=== PATIENT | female | born 1940 | race African-American/Black ===

== ENCOUNTER 2019-01-03 11:15 | Emergency (ER) | payer MEDICAID, MEDICARE ==
[~2019-01-03] VITALS: Ht 167.6 cm; Wt 82.0 kg
[2019-01-03 11:19] VITALS: BP 162/79
== END 2019-01-03 13:07 | disposition left against medical advice (07) ==
LOC: ER 11:15
DX: R04.0 Epistaxis (principal); Z53.21 Procedure and treatment not carried out due to patient leaving prior to being seen by health care provider

== ENCOUNTER 2019-01-03 16:49 | Emergency (ER) | payer MEDICARE ==
[~2019-01-03] VITALS: Ht 162.6 cm; Wt 72.0 kg
[2019-01-03 20:07] VITALS: BP 139/81
== END 2019-01-03 20:08 | disposition home or self-care (01) ==
LOC: ER 16:49
DX: R04.0 Epistaxis (principal); E11.9 Type 2 diabetes mellitus without complications; E78.00 Pure hypercholesterolemia, unspecified; I10 Essential (primary) hypertension; Z90.710 Acquired absence of both cervix and uterus
CPT/HCPCS: 99281

== ENCOUNTER 2020-12-27 16:02 | Emergency (ER) | payer BC, MEDICAID ==
[~2020-12-27] VITALS: Ht 160 cm; Wt 59.0 kg
[2020-12-27] MEDS ORDERED: IBUPROFEN 600MG TABLET PO ONE (17:00)
[2020-12-27] MEDS ORDERED: CYCLOBENZAPRINE 10MG TABLET PO ONE (17:00)
[2020-12-27] MEDS ORDERED: IBUP-2029 MT (17:45)
[2020-12-27] MEDS ORDERED: CYCL10TA7 MT (17:46)
[2020-12-27 18:35] VITALS: BP 126/64
== END 2020-12-27 19:22 | disposition home or self-care (01) ==
LOC: ER 16:02
DX: R07.89 Other chest pain (principal); M25.511 Pain in right shoulder; M25.521 Pain in right elbow; E11.9 Type 2 diabetes mellitus without complications; E78.00 Pure hypercholesterolemia, unspecified; I10 Essential (primary) hypertension; Z90.710 Acquired absence of both cervix and uterus
CPT/HCPCS: 71045; 73030; 73080; 82962; 99284; A4565

== ENCOUNTER 2024-09-02 15:03 | Emergency (ER) | payer OTHER, MEDICAID ==
[~2024-09-02] VITALS: Ht 165.1 cm; Wt 60.0 kg
[~2024-09-02 15:03] MED LIST: CYCL10TA21 MT; FAMO-135 MT; IBUP-2029 MT
[2024-09-02] MEDS: SODIUM CHLORIDE 0.9% (SEPSIS BOLUS) IV ONE (15:37)
[2024-09-02 16:02] LABS: BASOPHILS % 1.3 % (0.0-2.0); EOSINOPHILS % 3.2 % (0.0-5.0); HEMATOCRIT. 41.8 % (36.0-48.0); HEMOGLOBIN. 13.7 g/dL (12.0-16.0); LYMPHOCYTES % 26.8 % (20.0-50.0); MEAN CORPUSCULAR HGB CONC 32.7 g/dL (31.0-37.0); MEAN CORPUSCULAR VOLUME 94.8 fL (81.0-99.0); MEAN PLATELET VOLUME 8.6 fl (7.4-10.4); MONOCYTES % 5.8 % (2.0-8.0); NEUTROPHILS % 62.9 % (40.0-76.0); PLATELET 213 x1000/uL (130-400); RED BLOOD CELL COUNT 4.41 mill/uL (4.2-5.4); WHITE BLOOD COUNT 4.7 x1000/uL (4.5-11.0)
[2024-09-02 16:12] LABS: CARBON DIOXIDE 30 mEq/L (21-32); CHLORIDE 108 mEq/L (98-107); POTASSIUM 5.8 mEq/L (3.5-5.1); SODIUM 143 mEq/L (136-145)
[2024-09-02 16:13] LABS: CALCIUM 9.4 mg/dL (8.7-10.4)
[2024-09-02 16:18] LABS: CREATININE 0.8 mg/dL (0.6-1.0); GLUCOSE 93 mg/dL (70-105); UREA NITROGEN BLOOD 11 mg/dL (9-23)
[2024-09-02 16:19] LABS: TROPONIN I HIGH SENSITIVITY 6 ng/L (3.0-34)
[2024-09-02 16:20] LABS: ALANINE AMINOTRANSFERASE 20 IU/L (10-49); ALBUMIN 4.4 g/dL (3.2-4.8); ASPARTATE AMINOTRANSFERASE 42 IU/L (<34); BILIRUBIN DIRECT 0.1 mg/dL (<=3.0); BILIRUBIN TOTAL 0.5 mg/dL (0.1-1.0); PROTEIN TOTAL 7.1 g/dL (6.0-8.3)
[2024-09-02] MEDS ORDERED: FUROSEMIDE 100MG/10ML VIAL IV STA (16:27)
[2024-09-02 16:54] LABS: INR 0.9; PROTHROMBIN TIME 10.6 sec (9.6-11.0)
[2024-09-02] MEDS: FUROSEMIDE 40MG/4ML VIAL IV NR (17:29)
[2024-09-02] MEDS: INSULIN REGULAR (HUMULIN R) 1000UNITS/10ML VIAL IV ONE (17:29)
[2024-09-02] MEDS: SODIUM ZIRCONIUM CYCLOSILICATE 10GM/PACKET PO ONE (17:29)
[2024-09-02] MEDS: DEXTROSE 50% WATER 50ML SYRINGE IV ONE (17:29)
[2024-09-02] MEDS ORDERED: CLONIDINE 0.1MG TABLET PO PRN (17:45)
[2024-09-02] MEDS ORDERED: HYDROCODONE/ACETAMINOPHEN 5/325MG TABLET PO PRN (17:45)
[2024-09-02] MEDS ORDERED: ONDANSETRON HCL 4MG/2ML INJ IV PRN (17:45)
[2024-09-02] MEDS ORDERED: ACETAMINOPHEN 325MG TABLET PO PRN (17:45)
[2024-09-02] MEDS: ENOXAPARIN 40MG/0.4ML SYR SUBCUT SCH (18:00)
[2024-09-02] MEDS: SODIUM CHLORIDE 0.9% 1,000 ML IV SCH (18:12)
[2024-09-02 18:20] VITALS: PULSE 66; RESP 16; O2SAT 98
[2024-09-02] MEDS: ALBUTEROL (0.083%) 2.5MG/3ML NEB HHN ONE (18:35)
[2024-09-02 19:21] LABS: CHLORIDE 112 mEq/L (98-107); POTASSIUM 3.7 mEq/L (3.5-5.1); SODIUM 146 mEq/L (136-145)
[2024-09-02 19:22] LABS: CALCIUM 8.7 mg/dL (8.7-10.4); CARBON DIOXIDE 25 mEq/L (21-32)
[2024-09-02 19:27] LABS: CREATININE 0.8 mg/dL (0.6-1.0); GLUCOSE 107 mg/dL (70-105); UREA NITROGEN BLOOD 14 mg/dL (9-23)
[2024-09-02 23:37] VITALS: BP 145/69; PULSE 82; RESP 18; TEMP 36.89184; O2SAT 100
[2024-09-03] MEDS ORDERED: PANTOPRAZOLE SODIUM 40 MG/VIAL IV SCH (09:00)
== END 2024-09-03 00:06 | disposition short-term general hospital (02) ==
LOC: ER 15:03 → EDBEDREQSVC 19:16 → EDBEDREQ 19:16 → ER 09-03 00:06
DX: A41.9 Sepsis, unspecified organism (principal); R65.20 Severe sepsis without septic shock; G93.40 Encephalopathy, unspecified; E87.5 Hyperkalemia; I10 Essential (primary) hypertension; E11.9 Type 2 diabetes mellitus without complications; E78.00 Pure hypercholesterolemia, unspecified; I67.82 Cerebral ischemia; J44.9 Chronic obstructive pulmonary disease, unspecified; Z90.710 Acquired absence of both cervix and uterus; Z79.899 Other long term (current) drug therapy
CPT/HCPCS: 99291; 94070; 93970; 96360; 70450; 71045; 96361; 80076; 80048; 83880; 83605; 85025; 85610; 87040; 84484; 36415; 84145; 94640; 93005; J7030; C1893; J1940

== ENCOUNTER 2025-08-19 04:59 | Emergency (ER) | payer OTHER, MEDICAID ==
[~2025-08-19] VITALS: Ht 162.6 cm; Wt 63.0 kg
[~2025-08-19 04:59] MED LIST changes: +IBUP-1455 MT; -IBUP-2029 MT
[2025-08-19 05:01] VITALS: O2SAT 100
[2025-08-19] MEDS: KETOROLAC 15MG/ML VIAL IV ONE (06:16)
[2025-08-19 06:38] LABS: BASOPHILS % 1.1 % (0.0-2.0); EOSINOPHILS % 4.1 % (0.0-5.0); HEMATOCRIT. 40.3 % (36.0-48.0); HEMOGLOBIN. 13.0 g/dL (12.0-16.0); LYMPHOCYTES % 28.0 % (20.0-50.0); MEAN PLATELET VOLUME 7.7 fl (7.4-10.4); MONOCYTES % 4.2 % (2.0-8.0); NEUTROPHILS % 62.6 % (40.0-76.0); PLATELET 202 x1000/uL (130-400); RED BLOOD CELL COUNT 4.35 mill/uL (4.2-5.4); RED CELL DISTRIBUTION WIDTH 14.0 % (11.6-14.6)
[2025-08-19 06:44] LABS: CREATININE 0.7 mg/dL (0.6-1.0); UREA NITROGEN BLOOD 12 mg/dL (9-23)
[2025-08-19 07:11] LABS: TROPONIN I HIGH SENSITIVITY 9 ng/L (3.0-34)
[2025-08-19] MEDS ORDERED: TOPUD PO (08:10)
[2025-08-19 10:07] VITALS: BP 166/73; PULSE 71; RESP 15; TEMP 36.6; O2SAT 96
== END 2025-08-19 10:13 | disposition home or self-care (01) ==
LOC: ER 04:59 → CANBEDREQ 08:15 → ER 10:13
DX: M54.50 Low back pain, unspecified (principal); E11.9 Type 2 diabetes mellitus without complications; R06.02 Shortness of breath; Z79.899 Other long term (current) drug therapy
CPT/HCPCS: 99285; 96374; 80048; 83880; 85025; 84484; 36415; 72100; 93005; J1885

== ENCOUNTER 2025-08-20 18:59 | Emergency (ER) | payer OTHER, MEDICAID ==
[~2025-08-20] VITALS: Ht 170.2 cm; Wt 59.0 kg
[~2025-08-20 18:59] MED LIST changes: +TOPUD PO
[2025-08-20 19:03] VITALS: O2SAT 95
[2025-08-20 23:45] VITALS: BP 131/70; PULSE 69; RESP 18; O2SAT 100
[2025-08-21 00:29] VITALS: TEMP 98.4
[2025-08-21] MEDS: ACETAMINOPHEN 325MG TABLET PO ONE (00:29)
== END 2025-08-21 00:46 | disposition home or self-care (01) ==
LOC: ER 18:59
DX: M54.50 Low back pain, unspecified (principal); M79.605 Pain in left leg; E11.9 Type 2 diabetes mellitus without complications; R41.89 Other symptoms and signs involving cognitive functions and awareness
CPT/HCPCS: 72131; 93005; 93971; 99284